=== PATIENT | female | born 1960 | race Caucasian/White ===

== ENCOUNTER → 2023-03-03 | Outpatient (CLI) | payer MEDICARE ==
[~2023-03-03] MED LIST: DAPTOmycin 500 MG in SODIUM CHLORIDE 0.9% 50 ML IVPB NR; SODIUM CHLORIDE 0.9% 500 ML 500 ML in EMPTY BAG 1 BAG IV PRN
[2023-03-03 13:49] VITALS: BP 108/73; PULSE 92; RESP 16; TEMP 97.5
== END ==
LOC: PROCWHC3 12:15
PROVIDERS: ATTEND Specialist
DX: M86.9 Osteomyelitis, unspecified (principal); L97.529 Non-pressure chronic ulcer of other part of left foot with unspecified severity
CPT/HCPCS: 96365; J0878